=== PATIENT | female | born 1940 | race Caucasian/White ===

== ENCOUNTER 2020-07-20 23:39 | Emergency (ER) | payer BC ==
[~2020-07-20] VITALS: Ht 154.9 cm; Wt 59.4 kg
[2020-07-21 00:27] LABS: BASOPHILS % (AUTO) 0.5 % (0.0-2.0); EOSINOPHILS # (AUTO) 0.2 K/uL (0.0-0.7); EOSINOPHILS % (AUTO) 4.9 % (0.0-7.0); HEMATOCRIT 34.3 % (31.2-41.9); HEMOGLOBIN 11.2 g/dL (10.9-14.3); LYMPHOCYTES # (AUTO) 1.6 K/uL (20.0-40.0); LYMPHOCYTES % (AUTO) 32.1 % (20.5-51.5); MEAN CORPUSCULAR HGB CONC 33 g/dL (32.3-35.6); MONOCYTES # (AUTO) 0.5 K/uL (2.0-10.0); MONOCYTES % (AUTO) 9.9 % (0.0-11.0); NEUTROPHILS # (AUTO) 2.7 K/uL (1.8-8.9); NEUTROPHILS % (AUTO) 52.6 % (38.5-71.5); PLATELET COUNT (AUTO) 185 K/uL (179-408); RED BLOOD CELL COUNT(AUTO) 3.85 MIL/uL (3.63-4.92); WHITE BLOOD COUNT (AUTO) 5.1 K/uL (3.8-11.8)
[2020-07-21 00:32] LABS: CARBON DIOXIDE 28 mmol/L (21-32); CHLORIDE 105 mmol/L (98-107); CREATININE 1.6 mg/dL (0.6-1.3); GLUCOSE 113 mg/dL (74-106); POTASSIUM 4.9 mmol/L (3.5-5.1); UREA NITROGEN, BLOOD 32 mg/dL (7-18)
--- NOTE | 2020-07-21 00:50 | NUR ---
DR NERI AT BEDSIDE MADE PATIENT AWARE OF TEST RESULTS.
--- NOTE | 2020-07-21 01:00 | NUR ---
Patient discharged to home in stable condition. Written and verbal after care instructions given. Patient verbalizes understanding of instructions. Stressed follow up or return to ER for worsening s/s.
[2020-07-21 01:06] VITALS: BP 134/67
--- NOTE | 2020-07-21 01:08 | NUR ---
PATIENT TAKEN HOME BY .
== END 2020-07-21 01:08 | disposition home or self-care (01) ==
LOC: ER 23:41
DX: R07.89 Other chest pain (principal); Z95.2 Presence of prosthetic heart valve; M48.00 Spinal stenosis, site unspecified; Z87.891 Personal history of nicotine dependence; I44.7 Left bundle-branch block, unspecified; R00.1 Bradycardia, unspecified
CPT/HCPCS: 36415; 70030-TC; 71045; 85025; 93005; A4663

== ENCOUNTER 2023-04-30 03:17 | Inpatient (IN) | payer BC ==
[~2023-04-30] VITALS: Ht 157.5 cm; Wt 51.3 kg
[2023-04-30] MEDS ORDERED: IV NORMAL SALINE 1000 ML BAG IV ONE ×2 (03:30→04:30)
[2023-04-30 03:55] LABS: BASOPHILS % (AUTO) 0.8 % (0.0-2.0); EOSINOPHILS % (AUTO) 1.4 % (0.0-7.0); HEMATOCRIT 34.7 % (31.2-41.9); HEMOGLOBIN 11.4 g/dL (10.9-14.3); LYMPHOCYTES # (AUTO) 0.5 K/uL (0.8-4.8); LYMPHOCYTES % (AUTO) 16.9 % (20.5-51.5); MEAN CORPUSCULAR HEMOGLOBIN 29.4 uug (24.7-32.8); MEAN CORPUSCULAR HGB CONC 33 g/dL (32.3-35.6); MEAN CORPUSCULAR VOLUME 89.3 fL (75.5-95.3); MONOCYTES # (AUTO) 0.1 K/uL (0.1-1.30); MONOCYTES % (AUTO) 4.4 % (0.0-11.0); NEUTROPHILS # (AUTO) 2.4 K/uL (1.8-8.9); NEUTROPHILS % (AUTO) 76.5 % (38.5-71.5); PLATELET COUNT (AUTO) 175 K/uL (179-408); RED BLOOD CELL COUNT(AUTO) 3.89 MIL/uL (3.63-4.92); RED CELL DISTRIBUTION WIDTH 13.7 % (12.3-17.7); WHITE BLOOD COUNT (AUTO) 3.2 K/uL (3.8-11.8)
[2023-04-30 04:00] LABS: DIFFERENTIAL COMMENT 1
[2023-04-30 04:04] LABS: CALCIUM 9.4 mg/dL (8.5-10.1); CARBON DIOXIDE 26 mmol/L (21-32); CHLORIDE 106 mmol/L (98-107); CREATININE 1.2 mg/dL (0.6-1.3); GLUCOSE 134 mg/dL (74-106); POTASSIUM 4.1 mmol/L (3.5-5.1); SODIUM SERUM 141 mmol/L (136-145); UREA NITROGEN, BLOOD 22 mg/dL (7-18)
[2023-04-30 04:07] LABS: AMMONIA < 10 umol/L (11-32)
[2023-04-30 04:08] LABS: ETHANOL < 3 MG/DL (0-10)
[2023-04-30 04:12] LABS: ALANINE AMINOTRANSFERASE 25 U/L (14-59); ALBUMIN 3.7 g/dL (3.4-5.0); ALKALINE PHOSPHATASE 81 U/L (50-136); ASPARTATE AMINOTRANSFERASE 39 U/L (15-37); BILIRUBIN,DIRECT 0.2 mg/dL (0.0-0.2); BILIRUBIN,TOTAL 0.7 mg/dL (0.2-1.0); TOTAL PROTEIN, SERUM 6.5 g/dL (6.4-8.2)
[2023-04-30 04:15] LABS: ACETAMINOPHEN < 2.0 ug/mL (10-30)
[2023-04-30 04:17] LABS: THYROID STIMULATING HORMONE 2.208 mIU/mL (0.358-3.740)
[2023-04-30] MEDS ORDERED: BUPR-319 PO (04:23)
[2023-04-30] MEDS ORDERED: ASPI81TA31 PO (04:23)
[2023-04-30] MEDS ORDERED: HYDR25TA4 PO (04:24)
[2023-04-30] MEDS ORDERED: ROSU40TA PO (04:24)
[2023-04-30] MEDS ORDERED: METF-440 PO (04:24)
[2023-04-30] MEDS ORDERED: LISI10TA29 PO (04:24)
[2023-04-30] MEDS ORDERED: LEVO150T8 PO (04:24)
[2023-04-30] MEDS ORDERED: POTASSIUM BICARBONATE/CIT AC 25 MEQ TABLET.EFF PO ONE (08:45)
[2023-04-30] MEDS ORDERED: POTASSIUM BICARBONATE/CIT AC 25 MEQ TABLET.EFF ONE (10:06)
[2023-04-30] MEDS ORDERED: LORAZEPAM 2 MG/1 ML VIAL IV ONE (11:15)
[2023-04-30] MEDS ORDERED: ACETAMINOPHEN 325 MG TABLET PO PRN (14:00)
[2023-04-30] MEDS ORDERED: ENOXAPARIN SODIUM 40 MG/0.4 ML DISP.SYRIN SQ SCH (14:00)
[2023-04-30] MEDS ORDERED: LORAZEPAM 2 MG/1 ML VIAL IV PRN (14:00)
[2023-04-30] MEDS ORDERED: ONDANSETRON 4 MG/2 ML VIAL IV PRN (14:00)
[2023-04-30] MEDS ORDERED: REMEDY ESSENTIAL ZINC PASTE 113 GM TP PRN (14:00)
[2023-04-30] MEDS: IV D5 1/2 NS 1000 ML 1,000 ML IV PRN (18:50)
[2023-04-30 22:30] VITALS: BP 158/71; TEMP 98.2; O2SAT 98
[2023-04-30 23:54] LABS: CARBON DIOXIDE 25 mmol/L (21-32); CHLORIDE 111 mmol/L (98-107); CREATININE 1.2 mg/dL (0.6-1.3); GLUCOSE 65 mg/dL (74-106); POTASSIUM 3.6 mmol/L (3.5-5.1); SODIUM SERUM 145 mmol/L (136-145); UREA NITROGEN, BLOOD 17 mg/dL (7-18)
[2023-05-01 04:38] VITALS: BP 140/78; TEMP 98.2; O2SAT 94
[2023-05-01 06:50] LABS: BASOPHILS % (AUTO) 0.4 % (0.0-2.0); EOSINOPHILS # (AUTO) 0.1 K/uL (0.0-0.7); EOSINOPHILS % (AUTO) 2.6 % (0.0-7.0); HEMATOCRIT 32.7 % (31.2-41.9); HEMOGLOBIN 10.7 g/dL (10.9-14.3); LYMPHOCYTES # (AUTO) 1.1 K/uL (0.8-4.8); LYMPHOCYTES % (AUTO) 24.9 % (20.5-51.5); MEAN CORPUSCULAR HEMOGLOBIN 29.7 uug (24.7-32.8); MEAN CORPUSCULAR HGB CONC 33 g/dL (32.3-35.6); MEAN CORPUSCULAR VOLUME 90.4 fL (75.5-95.3); MONOCYTES # (AUTO) 0.3 K/uL (0.1-1.30); MONOCYTES % (AUTO) 7.7 % (0.0-11.0); NEUTROPHILS # (AUTO) 2.8 K/uL (1.8-8.9); NEUTROPHILS % (AUTO) 64.4 % (38.5-71.5); PLATELET COUNT (AUTO) 158 K/uL (179-408); RED BLOOD CELL COUNT(AUTO) 3.62 MIL/uL (3.63-4.92); RED CELL DISTRIBUTION WIDTH 13.6 % (12.3-17.7); WHITE BLOOD COUNT (AUTO) 4.3 K/uL (3.8-11.8)
[2023-05-01 07:21] LABS: DIFFERENTIAL COMMENT 1
[2023-05-01 07:29] LABS: ALANINE AMINOTRANSFERASE 24 U/L (14-59); ALKALINE PHOSPHATASE 67 U/L (50-136); ASPARTATE AMINOTRANSFERASE 61 U/L (15-37); BILIRUBIN,DIRECT 0.2 mg/dL (0.0-0.2); BILIRUBIN,TOTAL 0.6 mg/dL (0.2-1.0); CALCIUM 8.7 mg/dL (8.5-10.1); CARBON DIOXIDE 24 mmol/L (21-32); CHLORIDE 111 mmol/L (98-107); CREATININE 1.1 mg/dL (0.6-1.3); GLUCOSE 73 mg/dL (74-106); PHOSPHOROUS 2.8 mg/dL (2.5-4.9); POTASSIUM 3.5 mmol/L (3.5-5.1); SODIUM SERUM 145 mmol/L (136-145); TOTAL PROTEIN, SERUM 5.5 g/dL (6.4-8.2); UREA NITROGEN, BLOOD 16 mg/dL (7-18)
[2023-05-01 08:00] VITALS: BP 128/63; TEMP 98.1; O2SAT 95
[2023-05-01 08:30] LABS: CHOLESTEROL 136 mg/dL (<200); HDL CHOLESTEROL 61 mg/dL (40-60); TRIGLYCERIDES 67 MG/DL (30-150)
[2023-05-01] MEDS: PANTOPRAZOLE SODIUM 40 MG VIAL IV SCH (09:02)
[2023-05-01] MEDS: ENOXAPARIN SODIUM 30 MG/0.3 ML DISP.SYRIN SUBCUT SCH (09:03)
[2023-05-01] MEDS ORDERED: LEVO125T8 PO (10:22)
[2023-05-01 11:48] VITALS: BP 121/52; TEMP 98.2; O2SAT 99
[2023-05-01] MEDS ORDERED: ATOR80TA PO (11:51)
[2023-05-01] MEDS ORDERED: MULT-1119 PO (11:51)
[2023-05-01] MEDS ORDERED: CALC0.253 PO (11:51)
[2023-05-01] MEDS ORDERED: TOLT4CAP PO (11:51)
[2023-05-01 12:00] VITALS: O2SAT 96
[2023-05-01] MEDS ORDERED: MULT-1168 PO (12:37)
[2023-05-01] MEDS ORDERED: TURM1CAP2 PO (12:37)
[2023-05-01] MEDS ORDERED: OMEG-49 PO (12:37)
[2023-05-01] MEDS ORDERED: GABA-532 PO (12:37)
[2023-05-01] MEDS ORDERED: UBID200C35 PO (12:37)
[2023-05-01] MEDS ORDERED: LINA72CA PO (12:38)
[2023-05-01] MEDS ORDERED: SODIUM BICARBONATE 8.4% 50 MEQ/50 ML DISP.SYRIN IV ONE (13:34)
[2023-05-01] MEDS: LORAZEPAM 2 MG/1 ML VIAL IV PRN (14:00)
[2023-05-01] MEDS ORDERED: diphenhydrAMINE 50 MG/1 ML VIAL IV ONE (14:15)
[2023-05-01] MEDS: IV D5 1/2 NS 1000 ML 1,000 ML IV PRN (14:23)
[2023-05-01 15:50] VITALS: BP 175/58; TEMP 98.2; O2SAT 96
[2023-05-01 20:28] VITALS: BP 99/63; TEMP 98.7; O2SAT 97
[2023-05-02] VITALS (8 sets, daily range): BP systolic 97–172; BP diastolic 48–67; TEMP 97.6–99.1; O2SAT 95–100
[2023-05-02] MEDS: IV D5 1/2 NS 1000 ML 1,000 ML IV PRN ×2 (03:14→18:21)
[2023-05-02] MEDS: QUETIAPINE FUMARATE 25 MG TABLET PO PRN ×2 (04:22→16:42)
[2023-05-02] MEDS: LEVOTHYROXINE SODIUM 125 MCG TABLET PO SCH (06:07)
[2023-05-02 06:52] LABS: BASOPHILS % (AUTO) 0.3 % (0.0-2.0); EOSINOPHILS # (AUTO) 0.2 K/uL (0.0-0.7); HEMATOCRIT 33.2 % (31.2-41.9); HEMOGLOBIN 11.2 g/dL (10.9-14.3); LYMPHOCYTES # (AUTO) 0.7 K/uL (0.8-4.8); LYMPHOCYTES % (AUTO) 23.5 % (20.5-51.5); MEAN CORPUSCULAR HEMOGLOBIN 29.9 uug (24.7-32.8); MEAN CORPUSCULAR HGB CONC 34 g/dL (32.3-35.6); MEAN CORPUSCULAR VOLUME 88.9 fL (75.5-95.3); MONOCYTES # (AUTO) 0.3 K/uL (0.1-1.30); MONOCYTES % (AUTO) 8.5 % (0.0-11.0); NEUTROPHILS # (AUTO) 1.9 K/uL (1.8-8.9); NEUTROPHILS % (AUTO) 62.7 % (38.5-71.5); PLATELET COUNT (AUTO) 154 K/uL (179-408); RED BLOOD CELL COUNT(AUTO) 3.74 MIL/uL (3.63-4.92); RED CELL DISTRIBUTION WIDTH 13.5 % (12.3-17.7); WHITE BLOOD COUNT (AUTO) 3.1 K/uL (3.8-11.8)
[2023-05-02 07:10] LABS: CALCIUM 8.5 mg/dL (8.5-10.1); CARBON DIOXIDE 25 mmol/L (21-32); CHLORIDE 110 mmol/L (98-107); DIFFERENTIAL COMMENT 1; GLUCOSE 103 mg/dL (74-106); PHOSPHOROUS 3.1 mg/dL (2.5-4.9); POTASSIUM 3.2 mmol/L (3.5-5.1); SODIUM SERUM 143 mmol/L (136-145); UREA NITROGEN, BLOOD 10 mg/dL (7-18)
[2023-05-02] MEDS: PANTOPRAZOLE SODIUM 40 MG VIAL IV SCH (09:17)
[2023-05-02] MEDS: ENOXAPARIN SODIUM 30 MG/0.3 ML DISP.SYRIN SUBCUT SCH (09:19)
[2023-05-02 15:50] LABS: *BILIRUBIN,URIN NEGATIVE (NEGATIVE); *BLOOD, URINE NEGATIVE (NEGATIVE); *CLARITY,URINE CLEAR (CLEAR); *COLOR,URINE YELLOW (YELLOW); *KETONES,URINE NEGATIVE (NEGATIVE); *PROTEIN,URINE NEGATIVE (NEGATIVE); *UROBILINOGEN,URINE 0.2 E.U./dl (NORMAL); LEUKOCYTE ESTERASE ,URINE TRACE (NEGATIVE); NITRITE, URINE NEGATIVE (NEGATIVE); UGLUCOSE NEGATIVE (NEGATIVE)
[2023-05-02 16:02] LABS: *AMPHETAMINE, URINE NEGATIVE (NEGATIVE); *BARBITURATE, URINE NEGATIVE (NEGATIVE); *BENZODIAZEPINE, URINE POSITIVE (NEGATIVE); *CANNABINOID, URINE NEGATIVE (NEGATIVE); *COCCAINE, URINE NEGATIVE (NEGATIVE); *OPIATE, URINE NEGATIVE (NEGATIVE); *PHENCYCLIDINE SCREEN,URINE NEGATIVE (NEGATIVE); FENTANYL, URINE NEGATIVE (NEGATIVE)
[2023-05-02 16:24] LABS: BACTERIA,URINE FEW /HPF (NONE SEEN); RBC,URINE 0-3 /HPF (0-3); SQUAMOUS EPITHELIAL CELL,UR FEW /HPF (NONE SEEN)
[2023-05-02] MEDS ORDERED: POTASSIUM CHLORIDE 20 MEQ POWDER PACKET PO ONE (19:30)
[2023-05-02] MEDS: REMEDY ESSENTIAL ZINC PASTE 113 GM TP SCH (20:58)
[2023-05-02] MEDS: LORAZEPAM 2 MG/1 ML VIAL IV PRN (22:06)
[2023-05-03] VITALS: BP 166/69; TEMP 98.6; O2SAT 99
[2023-05-03] MEDS: QUETIAPINE FUMARATE 25 MG TABLET PO PRN (03:00)
[2023-05-03 04:00] VITALS: BP 184/70; TEMP 98.5; O2SAT 96
[2023-05-03] MEDS: LEVOTHYROXINE SODIUM 125 MCG TABLET PO SCH (06:08)
[2023-05-03 06:49] LABS: BASOPHILS % (AUTO) 0.6 % (0.0-2.0); EOSINOPHILS # (AUTO) 0.2 K/uL (0.0-0.7); EOSINOPHILS % (AUTO) 4.1 % (0.0-7.0); HEMATOCRIT 37.9 % (31.2-41.9); HEMOGLOBIN 12.5 g/dL (10.9-14.3); LYMPHOCYTES % (AUTO) 20.8 % (20.5-51.5); MEAN CORPUSCULAR HEMOGLOBIN 29.3 uug (24.7-32.8); MEAN CORPUSCULAR HGB CONC 33 g/dL (32.3-35.6); MEAN CORPUSCULAR VOLUME 88.9 fL (75.5-95.3); MONOCYTES # (AUTO) 0.4 K/uL (0.1-1.30); MONOCYTES % (AUTO) 8.9 % (0.0-11.0); NEUTROPHILS # (AUTO) 3.1 K/uL (1.8-8.9); NEUTROPHILS % (AUTO) 65.6 % (38.5-71.5); PLATELET COUNT (AUTO) 176 K/uL (179-408); RED BLOOD CELL COUNT(AUTO) 4.26 MIL/uL (3.63-4.92); RED CELL DISTRIBUTION WIDTH 13.5 % (12.3-17.7); WHITE BLOOD COUNT (AUTO) 4.7 K/uL (3.8-11.8)
[2023-05-03 06:52] VITALS: BP 139/70; O2SAT 95
[2023-05-03 07:09] LABS: CARBON DIOXIDE 26 mmol/L (21-32); CHLORIDE 110 mmol/L (98-107); GLUCOSE 103 mg/dL (74-106); MAGNESIUM 1.9 mg/dL (1.8-2.4); PHOSPHOROUS 2.8 mg/dL (2.5-4.9); SODIUM SERUM 144 mmol/L (136-145); UREA NITROGEN, BLOOD 11 mg/dL (7-18)
[2023-05-03 07:16] LABS: DIFFERENTIAL COMMENT 1
[2023-05-03] MEDS: IV D5 1/2 NS 1000 ML 1,000 ML IV PRN ×2 (07:19→22:45)
[2023-05-03] MEDS: ENOXAPARIN SODIUM 30 MG/0.3 ML DISP.SYRIN SUBCUT SCH (08:39)
[2023-05-03] MEDS: REMEDY ESSENTIAL ZINC PASTE 113 GM TP SCH ×2 (08:39→23:46)
[2023-05-03] MEDS: PANTOPRAZOLE SODIUM 40 MG VIAL IV SCH (08:55)
[2023-05-03] MEDS ORDERED: LORAZEPAM 1 MG TABLET PO PRN (09:15)
[2023-05-03] MEDS ORDERED: LORAZEPAM 2 MG/1 ML VIAL IV PRN (10:00)
[2023-05-03 11:30] VITALS: BP 142/52; TEMP 98.3; O2SAT 98
[2023-05-03 15:33] VITALS: BP_SYST 156; BP_SYST 165; BP_DIAS 89; TEMP 98.2; O2SAT 96
[2023-05-03 20:00] VITALS: BP 150/65; TEMP 99; O2SAT 99
[2023-05-03] MEDS: QUETIAPINE FUMARATE 25 MG TABLET PO SCH (20:21)
[2023-05-04 04:00] VITALS: BP 147/71; TEMP 98.5; O2SAT 99
[2023-05-04 05:59] VITALS: O2SAT 97
[2023-05-04] MEDS: LEVOTHYROXINE SODIUM 125 MCG TABLET PO SCH (06:15)
[2023-05-04] MEDS: PANTOPRAZOLE ORAL SUSPENSION 40 MG SUSPDR.PKT PO SCH (06:15)
[2023-05-04 07:50] LABS: BASOPHILS % (AUTO) 0.3 % (0.0-2.0); EOSINOPHILS # (AUTO) 0.2 K/uL (0.0-0.7); EOSINOPHILS % (AUTO) 2.2 % (0.0-7.0); HEMATOCRIT 35.7 % (31.2-41.9); HEMOGLOBIN 11.9 g/dL (10.9-14.3); LYMPHOCYTES # (AUTO) 1.3 K/uL (0.8-4.8); MEAN CORPUSCULAR HEMOGLOBIN 29.4 uug (24.7-32.8); MEAN CORPUSCULAR HGB CONC 33 g/dL (32.3-35.6); MEAN CORPUSCULAR VOLUME 88.4 fL (75.5-95.3); MONOCYTES # (AUTO) 0.5 K/uL (0.1-1.30); MONOCYTES % (AUTO) 7.6 % (0.0-11.0); NEUTROPHILS # (AUTO) 5.1 K/uL (1.8-8.9); NEUTROPHILS % (AUTO) 71.9 % (38.5-71.5); PLATELET COUNT (AUTO) 178 K/uL (179-408); RED BLOOD CELL COUNT(AUTO) 4.03 MIL/uL (3.63-4.92); RED CELL DISTRIBUTION WIDTH 13.2 % (12.3-17.7); WHITE BLOOD COUNT (AUTO) 7.1 K/uL (3.8-11.8)
[2023-05-04 08:05] LABS: DIFFERENTIAL COMMENT 1
[2023-05-04] MEDS: ASPIRIN 81 MG TAB.CHEW PO SCH (08:10)
[2023-05-04] MEDS: ENOXAPARIN SODIUM 30 MG/0.3 ML DISP.SYRIN SUBCUT SCH (08:10)
[2023-05-04 08:12] LABS: CALCIUM 8.7 mg/dL (8.5-10.1); CARBON DIOXIDE 27 mmol/L (21-32); CHLORIDE 107 mmol/L (98-107); GLUCOSE 141 mg/dL (74-106); MAGNESIUM 1.9 mg/dL (1.8-2.4); PHOSPHOROUS 2.7 mg/dL (2.5-4.9); POTASSIUM 3.7 mmol/L (3.5-5.1); SODIUM SERUM 142 mmol/L (136-145); UREA NITROGEN, BLOOD 11 mg/dL (7-18)
[2023-05-04] MEDS: REMEDY ESSENTIAL ZINC PASTE 113 GM TP SCH ×2 (08:31→23:09)
[2023-05-04 11:02] VITALS: BP 135/40; TEMP 98.2; O2SAT 98
[2023-05-04 15:05] VITALS: BP 133/50; TEMP 98.3; O2SAT 99
[2023-05-04 20:00] VITALS: BP 139/70; TEMP 99.1; O2SAT 98
[2023-05-04] MEDS: QUETIAPINE FUMARATE 25 MG TABLET PO SCH (20:49)
[2023-05-05 01:31] VITALS: O2SAT 97
[2023-05-05 04:00] VITALS: BP 131/68; TEMP 98.9; O2SAT 98
[2023-05-05] MEDS: PANTOPRAZOLE ORAL SUSPENSION 40 MG SUSPDR.PKT PO SCH (06:05)
[2023-05-05] MEDS: LEVOTHYROXINE SODIUM 125 MCG TABLET PO SCH (06:05)
[2023-05-05 07:29] LABS: BASOPHILS % (AUTO) 0.5 % (0.0-2.0); DIFFERENTIAL COMMENT 1; EOSINOPHILS # (AUTO) 0.3 K/uL (0.0-0.7); EOSINOPHILS % (AUTO) 4.2 % (0.0-7.0); HEMATOCRIT 33.9 % (31.2-41.9); HEMOGLOBIN 11.5 g/dL (10.9-14.3); LYMPHOCYTES # (AUTO) 1.1 K/uL (0.8-4.8); LYMPHOCYTES % (AUTO) 17.7 % (20.5-51.5); MEAN CORPUSCULAR HEMOGLOBIN 30.1 uug (24.7-32.8); MEAN CORPUSCULAR HGB CONC 34 g/dL (32.3-35.6); MEAN CORPUSCULAR VOLUME 88.9 fL (75.5-95.3); MONOCYTES # (AUTO) 0.5 K/uL (0.1-1.30); MONOCYTES % (AUTO) 8.7 % (0.0-11.0); NEUTROPHILS # (AUTO) 4.1 K/uL (1.8-8.9); NEUTROPHILS % (AUTO) 68.9 % (38.5-71.5); PLATELET COUNT (AUTO) 161 K/uL (179-408); RED BLOOD CELL COUNT(AUTO) 3.82 MIL/uL (3.63-4.92); RED CELL DISTRIBUTION WIDTH 13.4 % (12.3-17.7)
[2023-05-05 07:35] LABS: CREATININE 1.1 mg/dL (0.6-1.3); POTASSIUM 3.7 mmol/L (3.5-5.1)
[2023-05-05 07:38] LABS: CALCIUM 8.6 mg/dL (8.5-10.1)
[2023-05-05 08:00] VITALS: BP 134/64; TEMP 97.5; O2SAT 98
[2023-05-05] MEDS: ENOXAPARIN SODIUM 30 MG/0.3 ML DISP.SYRIN SUBCUT SCH (09:31)
[2023-05-05] MEDS: ASPIRIN 81 MG TAB.CHEW PO SCH (09:32)
[2023-05-05] MEDS: REMEDY ESSENTIAL ZINC PASTE 113 GM TP SCH (09:33)
[2023-05-05] MEDS ORDERED: QUET25TA36 PO ×2 (12:09)
[2023-05-05] MEDS ORDERED: ASPI81TA31 PO (12:09)
== END 2023-05-05 15:50 | DRG 917 ==
LOC: ER 03:19 → MEDSURG3 21:48 → TELE3 22:12 → MEDSURG3 05-03 09:25
PROVIDERS: ADMIT Nurse Practitioner Family; ATTEND Nurse Practitioner Acute Care
DX: T46.4X1A Poisoning by angiotensin-converting-enzyme inhibitors, accidental (unintentional), initial encounter (principal); G92.8 Other toxic encephalopathy; F03.918 Unspecified dementia, unspecified severity, with other behavioral disturbance; F03.93 Unspecified dementia, unspecified severity, with mood disturbance; T43.291A Poisoning by other antidepressants, accidental (unintentional), initial encounter; T39.011A Poisoning by aspirin, accidental (unintentional), initial encounter; T46.6X1A Poisoning by antihyperlipidemic and antiarteriosclerotic drugs, accidental (unintentional), initial encounter; T42.6X1A Poisoning by other antiepileptic and sedative-hypnotic drugs, accidental (unintentional), initial encounter; I69.320 Aphasia following cerebral infarction; D69.6 Thrombocytopenia, unspecified; D72.819 Decreased white blood cell count, unspecified; E78.5 Hyperlipidemia, unspecified; I10 Essential (primary) hypertension; Z86.74 Personal history of sudden cardiac arrest; Z95.2 Presence of prosthetic heart valve; Z87.891 Personal history of nicotine dependence; R73.9 Hyperglycemia, unspecified; K58.9 Irritable bowel syndrome, unspecified; T38.1X1A Poisoning by thyroid hormones and substitutes, accidental (unintentional), initial encounter; Y92.009 Unspecified place in unspecified non-institutional (private) residence as the place of occurrence of the external cause; F32.A Depression, unspecified; Z79.899 Other long term (current) drug therapy; Z20.822 Contact with and (suspected) exposure to COVID-19
CPT/HCPCS: 36415; 70450; 71045; 72125; 83605; 83735; 84100; 84443; 84484; 85025; 93005; A4606; A4663; A6213; C9113; G0378; G0480; J1200; J1650; J2060; J3490; J7040